=== PATIENT | female | born 1940 | race Caucasian/White ===

== ENCOUNTER 2016-08-04 15:23 | Emergency (ER) | payer MEDICARE, MEDICAID ==
--- NOTE | 2016-08-04 16:14 | UC ---
Minor Trauma HPI - HPI Summary HPI Summary: Tripped and fell last pm in the shower. Struck rt posterior chest/ribs. Some splinting rt chest pain last pm. Pain decreased with tylenol and meloxicam today. No SOB. No shoulder joint/neck pain. No hematuria. Briefly had upper abdominal discomfort earlier today. No abd pain now. No BM since the fall. Denies head/neck injury/pain. - History of Current Complaint Stated Complaint: BACK RIGHT ARM RIGHT LEG PAIN Time Seen by Provider: 08/04/16 15:51 Hx Obtained From: Patient, Family/[employer] Coach ?: No Onset/Duration: Sudden Onset, Still Present Onset Of Pain: Immediate Severity Initially: Moderate Severity Currently: Mild Mechanism Of Injury: Fall From A Standing Position Aggravating Factor(s): Movement Alleviating Factor(s): OTC Meds Associated Signs And Symptoms: Negative: Loss Of Consciousness Related History: Negative: Anticoagulants - Allergies/Home Medications Allergies/Adverse Reactions: Allergies Allergy/AdvReac Type Severity Reaction Status Date / Time Penicillins Allergy See Comment Verified 08/04/16 16:21 lactose Allergy Unknown Uncoded 08/04/16 16:20 Reaction Details Home Medications: Home Medications Acetaminophen 1 - 2 tab PO Q8HR PRN 08/04/16 [History Confirmed 08/04/16] Albuterol/Ipratropium NEB.LIZZ* [Duoneb (Albuterol 2.5 MG/Ipratropium 0.5 MG)] 1 neb INH Q6H PRN 08/04/16 [History Confirmed 08/04/16] Ascorbic Acid [Vitamin C] 1,000 mg PO DAILY 08/04/16 [History Confirmed 08/04/16 ] Cholecalciferol [Vitamin D] 1,000 unit PO DAILY 08/04/16 [History Confirmed ] Docusate Sodium [Colace] 1 - 2 mg PO DAILY 08/04/16 [History Confirmed 08/04/16] FLUoxetine CAP* [PROzac CAP*] 10 mg PO DAILY 08/04/16 [History Confirmed ] Lysine 500 mg PO DAILY PRN 08/04/16 [History Confirmed 08/04/16] Meloxicam [Mobic] 15 mg PO DAILY 08/04/16 [History Confirmed 08/04/16] [place]-3 Fatty Acids [Fish Oil] 1,000 mg PO DAILY 08/04/16 [History Confirmed ] Probiotic Product [Acidophilus] 1 cap PO DAILY 08/04/16 [History Confirmed 08/04] guaiFENesin ER TAB [Mucinex*] 600 mg PO BID 08/04/16 [History Confirmed 08/04/16 ] PMH/Surg Hx/FS Hx/Imm Hx Previously Healthy: No Endocrine History Of: Reports: Diabetes Cardiovascular History Of: Reports: Hypertension Respiratory History Of: 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 tonsillectomy. 2 c-sections - Family History Known Family History: Positive: Unknown - Social History Occupation: Retired Alcohol Use: None Substance Use Type: None Smoking Status (MU): Former Smoker When Did the Patient Quit Smoking/Using Tobacco: 20 years ago Household Exposure Type: Cigarettes - Immunization History Most Recent Influenza Vaccination: yes [id number] Review of Systems Constitutional: Negative Skin: Bruising - rt posterior chest Eyes: Negative ENT: Negative Respiratory: Negative - No SOB Cardiovascular: Negative Gastrointestinal: Abdominal Pain - None now.Briefly upper abd pain earlier today. Genitourinary: Negative Motor: Negative Musculoskeletal: Negative Neurological: Negative Psychological: Negative All Other Systems Reviewed And Are Negative: Yes Physical Exam Triage Information Reviewed: Yes Appearance: Well-Appearing, No Pain Distress, Well-Nourished, Signs of Trauma - Rt posterior chest eccymosis Eye Exam: Normal ENT Exam: Normal Neck exam: Normal Neck: Positive: Supple Respiratory Exam: Normal Respiratory: Positive: Lungs clear, Normal breath sounds, No respiratory distress Cardiovascular Exam: Normal Abdominal Exam: Normal Abdomen Description: Positive: Nontender, Soft. Negative: CVA Tenderness (R), CVA Tenderness (L) Bowel Sounds: Positive: Present Musculoskeletal Exam: Normal Musculoskeletal: Positive: Strength Intact Neurological Exam: Normal Neurological: Positive: Muscle Tone Normal Psychological Exam: Normal Skin Exam: Other - Rt posterior chest eccymosis Minor Trauma Course/Dx - Course Course Of Treatment: DISCUSSED RESULTS WITH PATIENT/FAMILY. F/U WITH PMD. - Differential Dx/Diagnosis Provider Diagnoses: rt rib fxrs Discharge - Discharge Plan Condition: Stable Disposition: HOME Prescriptions: Respiratory Therapy Supplies [Spirometer Kit] 1 kit XX Q4HR #1 kit traMADol TAB* [Ultram*] 50 mg PO Q6HR PRN #20 tab MDD 4 PRN Reason: Pain Patient Education Materials: Blunt Chest Trauma (ED), Rib Fracture (ED) Referrals: MEGAN Kiran [Primary Care Provider] - Additional Instructions: FOLLOW UP WITH YOUR DOCTOR. GO TO THE EMERGENCY DEPARTMENT FOR ANY WORSENING OF YOUR CONDITION OR QUESTIONS OR CONCERNS.
--- NOTE | 2016-08-04 16:57 | RAD ---
Indication: Right posterior chest pain after fall. 2 views of the chest including dual energy PA views demonstrate no mediastinal shift. Heart is of normal size and configuration. Lung mason demonstrate no pleural fluid, pneumonia or pneumothorax. Calcified lymph nodes are noted in the left hilum. IMPRESSION: No active cardiopulmonary disease is noted.
--- NOTE | 2016-08-04 16:58 | RAD ---
Indication: Right rib injury after fall. 3 views of the right ribs are reviewed. There is acute angulation of the distal end of the right eighth rib. This likely represents a nondisplaced fracture. There may be some slight deformity of the right ninth rib present as well. IMPRESSION: There is suggestion of a fracture of the right eighth rib and possibly ninth rib without significant displacement.
[2016-08-04 17:53] VITALS: BP 155/66
== END 2016-08-04 17:22 | disposition home or self-care (01) ==
LOC: UCCORT 15:23
DX: S22.31XA Fracture of one rib, right side, initial encounter for closed fracture (principal); W01.0XXA Fall on same level from slipping, tripping and stumbling without subsequent striking against object, initial encounter; Y93.9 Activity, unspecified; Y92.9 Unspecified place or not applicable; Z88.0 Allergy status to penicillin; R10.10 Upper abdominal pain, unspecified; E11.9 Type 2 diabetes mellitus without complications; I10 Essential (primary) hypertension; J43.9 Emphysema, unspecified; Z87.891 Personal history of nicotine dependence
CPT/HCPCS: 71020; 81003; 87077; 87086; 87186; 99211; G0463